=== PATIENT | female | born 1935 | race Caucasian/White ===

== ENCOUNTER → 2017-01-06 | Outpatient (REF) | payer MEDICARE, BC | LOC: M LAB REF 13:14 | PROVIDERS: ATTEND Internal Medicine | DX: L65.8 Other specified nonscarring hair loss (principal) ==

== ENCOUNTER → 2019-05-21 | Outpatient (CLI) | payer MEDICARE, BC ==
--- NOTE | 2019-05-23 15:38 | DEXA ---
AP SPINE L1 - L4 1.069 -1.0 0.9 LT FEMUR TOTAL 0.750 -2.0 0.2 LT NECK 0.784 -1.8 0.5 RT FEMUR TOTAL 0.846 -1.3 0.9 RT NECK 0.828 -1.5 0.8 TOTAL BODY TOTAL OTHER COMMENTS: There is low bone density of the spine and hips. The increased density of the spine does represent a significant change. The decreased density of the left hip does represent a significant change. The decreased density of the right hip does represent a significant change. The density of the spine has increased 2.6% since the initial exam on 01/02/2003. The spine density has increased 2.2% since the most recent exam on 03/16/2016. The density of the left hip has decreased 26.5% since the initial exam on 01/02/2003. The density of the left hip has decreased 9.4% since the most recent exam on 03/16/2018. The density of the right hip has decreased 21.4% since the initial exam on 01/02/2003. The density of the right hip has decreased 9.4% since the most recent exam on 03/16/2016. FOLLOW-UP: Recommendation for the next bone density exam: 2 years. CARLOS
== END ==
LOC: M WHC 08:58
PROVIDERS: ATTEND Nurse Practitioner Adult Health
DX: Z13.820 Encounter for screening for osteoporosis (principal); M85.89 Other specified disorders of bone density and structure, multiple sites